=== PATIENT | female | born 1990 | race Caucasian/White ===

== ENCOUNTER 2021-05-01 21:42 | Emergency (ER) | payer BC ==
[2021-05-01 21:58] VITALS: BP 134/79; PULSE 82; TEMP 98.1; BMI 52.2
== END 2021-05-01 22:37 | disposition home or self-care (01) ==
LOC: JERFT 21:42
DX: S00.35XA Superficial foreign body of nose, initial encounter (principal)
CPT/HCPCS: 99281-25

== ENCOUNTER 2021-08-16 14:23 | Emergency (ER) | payer BC ==
[2021-08-16 14:30] VITALS: BP 131/81; PULSE 71; TEMP 97.8; BMI 54.8
== END 2021-08-16 16:47 | disposition home or self-care (01) ==
LOC: JERFT 14:23
DX: S80.211A Abrasion, right knee, initial encounter (principal); M25.561 Pain in right knee; M79.601 Pain in right arm; W01.0XXA Fall on same level from slipping, tripping and stumbling without subsequent striking against object, initial encounter; Y92.481 Parking lot as the place of occurrence of the external cause
CPT/HCPCS: 73060-TC-LT-FY; 73562-TC-RT-FY; 84703; 99285-25

== ENCOUNTER 2022-10-26 08:59 | Emergency (ER) | payer BC ==
[2022-10-26 09:10] VITALS: BP 136/76; PULSE 72; RESP 17; TEMP 97.8; BMI 54.5
[2022-10-26] MEDS ORDERED: KETOROLAC TROMETHAMINE 30 MG/1 ML VIAL IM ONE (10:09)
[2022-10-26] MEDS ORDERED: METHOCARBAMOL 500 MG TABLET PO ONE (10:09)
[2022-10-26 11:09] LABS: EPI CELLS >36 /uL (0-25.1); HYALINE CASTS 0 /uL (0-3.1); PH,URINE 7.5 (5.0-8.0); URINE APPEARANCE CLOUDY; URINE BACTERIA 4894 /uL (0-1359); URINE BILIRUBIN NEGATIVE (NEGATIVE); URINE COLOR YELLOW; URINE GLUCOSE (UA) NEGATIVE (NEGATIVE); URINE KETONE NEGATIVE (NEGATIVE); URINE LEUK ESTERASE TRACE (NEGATIVE); URINE NITRITE NEGATIVE (NEGATIVE); URINE PROTEIN NEGATIVE (NEGATIVE); URINE RBC 16 /uL (0-23.9); URINE UROBILINOGEN 0.2 mg/dL (0.2-1.0); URINE WBC 57 /uL (0-25.8)
[2022-10-26 11:10] LABS: HCG,QUALITATIVE URINE Negative
[2022-10-26] MEDS ORDERED: METHOCARBAMOL 500 MG TABLET ONE (11:17)
[2022-10-26] MEDS ORDERED: KETOROLAC TROMETHAMINE 30 MG/1 ML VIAL ONE (11:18)
== END 2022-10-26 11:49 | disposition home or self-care (01) ==
LOC: JERFT 08:59 → JER 08:59 → JERFT 11:49
PROC: 3E0233Z Introduction of Anti-inflammatory into Muscle, Percutaneous Approach (ICD-10-PCS; principal; 2022-10-26)
DX: M54.50 Low back pain, unspecified (principal)
CPT/HCPCS: 81003; 84703; 99284-25